=== PATIENT | female | born 1990 | race Caucasian/White ===

== ENCOUNTER 2016-06-22 04:34 | Inpatient (IN) | payer MEDICAID ==
[~2016-06-22] VITALS: Ht 154.9 cm; Wt 70.0 kg
[~2016-06-22 04:34] MED LIST: EPIFOAM10 GM TOPICAL; IBUPROFEN600 MG PO; PERCOCET 5-3251 TAB PO
[2016-06-22] MEDS ORDERED: PRENATAL COMPLE1 TAB PO (04:52)
[2016-06-22 05:06] VITALS: BP 144/78; Ht 154.9 cm; Wt 70.0 kg
[2016-06-22 07:52] LABS: HEMATOCRIT 32.2 % (36.0-48.0); HEMOGLOBIN 9.7 g/dL (12-16); MCH 22.7 pg (26.0-34.0); MCHC 30.1 g/dL (31.0-37.0); MCV 75.4 fL (80.0-100.0); MEAN PLATELET VOLUME 10.8 fL (7.4-10.4); RBC 4.27 10x6/uL (4.00-5.40); RDW 15.7 % (11.5-14.5)
--- NOTE | 2016-06-22 17:30 | NUR ---
PATIENT UP TO SHOWER. NO SIGNS OF DISTRESS NOTED.
--- NOTE | 2016-06-22 18:00 | NUR ---
PATIENT LYING IN BED HOLDING . PATIENT DENIES ANY NEEDS AT THIS TIME. NO SIGNS OF DISTRESS NOTED.
[2016-06-22 19:31] VITALS: BP 111/59
--- NOTE | 2016-06-22 19:31 | NUR ---
SITTING CROSS LEGGED IN BED. VISITOR AT BEDSIDE HOLDING INFANT. PT. FILLING OUT NBN PAPERWORK. REPORTS PAIN A 2 OF 10 AND STATES SHE FEELS IT WHENEVER SHE IS AMBULATORY. IV SALINE NOTED IN LT WRIST AREA. PT. ASKED IF IV CAN BE TAKEN OUT. INFORMED PT. TO WHY IV LEFT UNTIL AM LABS AND PT. STATES SHE IS FINE WITH THAT. BREATH SOUNDS CLEAR AND BOWEL SOUNDS AUDIBLE. NO COMPLAINT OF PAIN IN LOWER EXTREMITIES AND NO REDNESSN NOTED. FUNDUS FIRM U/2 AND LOCHIA RUBRA SCANT TO MOD. PT. DENIES ANY NEEDS.
--- NOTE | 2016-06-22 21:09 | NUR ---
MILK OF MAGNESIA GIVEN ORDERED. DISCUSSED WITH PT. POSSIBLY CONTINUING SAME AT HOME. PT. REPORTS THAT SHE HAS PROBLEMS WITH CONSTIPATION AND ALSO HAS HEMORRHOIDS. PT.STATES THAT AFTER SHE FEEDS HER THAT SHE WOULD LIKE HER PAIN MEDS AND THEN SHE WILL GO TO SLEEP. STATES THAT HER OTHER CHILD HAD A STOMACH BUG THE NIGHT PRIOR TO HER INDUCTION SO SHE WAS UNABLE TO SLEEP AND IS REALLY TIRED. PT. INFORMED TO JUST CALL AND PAIN MED WOULD BE BROUGHT AND WOULD ALSO RETURN TO NBN. VISITOR REMAINS AT BEDSIDE HOLDING .
--- NOTE | 2016-06-22 21:49 | NUR ---
PT RINGS CL. THIS RN TO BEDSIDE. PT REQUESTS BE TAKEN TO NBN. TRANSPORTED VIA OPEN CRIB TO NBN PER THIS RN.
--- NOTE | 2016-06-22 22:00 | NUR ---
PT REQUESTS AND RECEIVES MOTRIN 600MG X1 TAB AND PERCOCET 5/325 X1 TAB FOR PAIN RATED 6/10 IN PERINEUM. PT DENIES FURTHER NEEDS AT THIS TIME.
--- NOTE | 2016-06-22 23:47 | NUR ---
PAIN REASSESSMENT COMPLETE. PT STATES "THE MEDICINE HELPED AFTER ABOUT 30 MINS BUT NOW MY PAIN IS WORSE." PT CURRENTLY SITTING UP IN BED INFANT. PT C/O PAIN IN PERINEUM AND SAYS HER HEMMORHOIDS HURT MORE THAN ANYTHING ELSE. PLAN TO OFFER SITZ BATH AFTER IS FINISHED. PT DENIES FURTHER NEEDS AT THIS TIME.
--- NOTE | 2016-06-23 00:15 | NUR ---
PT.UP IN BATHROOM. C/O HEMORRHOIDAL PAIN. SUGGESTED THAT PT. TRY SITZ BATH. EXPLAINED THE RATIONAL FOR SITZ BATH AND PT. STATED THAT SHE WOULD LIKE TO USE. AFTER PT. VOIDED, SITZ BATH PREPARED AND PT. INSTRUCTED ON USE. DISCUSSED WITH PT. THAT AFTER SITZ BATH TO USE PROCTOCREAM AND TUCKS PADS AND THEN ICE CAP WILL BE APPLIED TO HEMORRHOID AREA. PT. RECEPTIVE TO ALL SUGGESTIONS.
--- NOTE | 2016-06-23 00:35 | NUR ---
SITZ BATH COMPLETED AND PT.USED PROCTOCREAM, TUCKS AND EPIFOAM. PT. REPORTS THAT SITZ BATH HELPED WITH HEMORRHOID PAIN. ICE CAP APPLIED TO HEMORRHOIDAL AREA AND PT. LYING IN BED ON RT SIDE. REQUESTED LIGHTS OUT. PT. STATES SHE DESIRES TO SLEEP UNTIL COMES FOR NEXT FEEDING.
--- NOTE | 2016-06-23 02:38 | NUR ---
INFANT TO ROOM FOR FEEDING. PT. UP TO BATHROOM. REPORTS THAT INTERVENTIONS "REALLY HELPED" HEMORRHOIDAL DISCOMFORT. STATES SHE IS HAVING OCCAS. ABD. CRAMPING AT THIS TIME. BACK TO BED. ID OF AND MOTHER MATCHED. INFORMED PT. TO CALL WHEN SHE IS READY TO RETURN INFANT TO NURSERY.
--- NOTE | 2016-06-23 03:25 | NUR ---
PT RINGS CL. RN TO BEDSIDE. PT FINISHED . PLACED IN OPEN CRIB AND SWADDLED PER THIS RN. PT REQUESTS & RECEIVES PERCOCET 5/325MG X1 TAB FOR PAIN RATED 6/10 IN ABD FOR UTERINE CRAMPING. PT DENIES FURTHER NEEDS. TRANSPORTED VIA OPEN CRIB TO NBN PER THIS RN.
--- NOTE | 2016-06-23 04:14 | NUR ---
PT. AWAKENS WITH THIS NURSE ENTERING ROOM. REQUESTED MORE ICE WATER AND REFILL OF ICE CAP FOR RECTAL AREA. BOTH PROVIDED. RATES PAIN A 1 OF 10 ON PAIN SCALE. REQUEST ALL LIGHTS IN ROOM DIMMED OR OFF.
[2016-06-23 06:13] LABS: RAPID PLASMA REAGIN Non Reactive (Non Reactive)
--- NOTE | 2016-06-23 06:30 | NUR ---
PT. AWAKENED FOR FEEDING OF . ID OF AND MOTHER MATCHED.
[2016-06-23 07:12] LABS: BASOPHILS 0.1 % (0.0-2.0); EOSINOPHILS 0.7 % (0-7); HEMATOCRIT 31.1 % (36.0-48.0); HEMOGLOBIN 9.2 g/dL (12-16); IMMATURE GRANULOCYTES 0.4 % (0-5); LYMPHOCYTES 19.6 % (15-50); MCH 22.7 pg (26.0-34.0); MCHC 29.6 g/dL (31.0-37.0); MCV 76.8 fL (80.0-100.0); MEAN PLATELET VOLUME 10.9 fL (7.4-10.4); MONOCYTES 6.3 % (2-11); NEUTROPHILS 72.9 % (40-80); RBC 4.05 10x6/uL (4.00-5.40); RDW 15.8 % (11.5-14.5); WBC 8.1 10x3/uL (4.8-10.8)
[2016-06-23 07:14] LABS: PLATELET COUNT 144 10x3/uL (130-400)
[2016-06-23 07:17] VITALS: BP 127/67
--- NOTE | 2016-06-23 07:34 | NUR ---
PATIENT ASSESSMENT COMPLETED. REQUESTED DIFFERENT ITEMS FOR BREAKFAST. 3/10 PAIN IN HEMORRHOID AREA, REQUESTED ICE PACK. HAS BEEN UP TO BR VOIDED, KAT-CARE COMPLETED, USING PROCTOFOAM FOR HEMORRHOIDS AND TUCKS PADS PRN. IN NURSERY, BREASTFED WITHOUT DIFFICULTY. UNSURE IF SHE WANTS TDAP PRIOR TO DC. RN WILL PROVIDE INFORMATION. RH POSITIVE, RUBELLA IMMUNE. SIDE RAILS UP X 2, CALL LIGHT IN REACH.
--- NOTE | 2016-06-23 08:55 | NUR ---
SITTING UP IN BED HOLDING . TDAP INFORMATION GIVEN. DENIES NEEDING ANYTHING AT THIS TIME. CALL LIGHT IN REACH, TO CALL IF ANYTHING IS NEEDED. VERBALIZED UNDERSTANDING.
--- NOTE | 2016-06-23 10:04 | NUR ---
REQUESTED PAIN MEDICATION FOR 6/10 CRAMPING AFTER . PERCOCET 5 MG PO FOR RELIEF AFTER DISCUSSING PAIN MEDICATION OPTIONS. SIDE RAILS UP X 2, CALL LIGHT IN REACH. INFANT IN ARMS, REMINDED NOT TO SLEEP WITH IN ARMS. VERBALIZED UNDERSTANDING. PLANS SHOWER AFTER ARRIVES.
[2016-06-23] MEDS ORDERED: IBUPROFEN600 MG PO (10:25)
[2016-06-23] MEDS ORDERED: PERCOCET 5-3251 TAB PO (10:25)
--- NOTE | 2016-06-23 10:39 | NUR ---
DR HERZOG HERE. NEW ORDERS RECEIVED TO DC HOME. SALINE LOCK DC'D AND PATIENT UP TO SHOWER. FOB IN ROOM WITH . PT DESIRES TDAP BEFORE DC HOME.
--- NOTE | 2016-06-23 11:26 | NUR ---
DR HERZOG VISITING PT. CONTINUES WITH 5/10 CRAMPING. MOTRIN 600 MG GIVEN PO FOR RELIEF. ALSO REQUESTED KAT-CARE AND HEMORRHOID CREAM. AWAITING DC OF INFANT. NO ADDITIONAL REQUESTS.
--- NOTE | 2016-06-23 12:27 | NUR ---
CURRENTLY INFANT. VERBAL AND WRITTEN DC INFORMATION GIVEN INCLUDING ROUTINE PP CARE, S&S INFECTION, PP DEPRESSION, /BREAST CARE, HEMORRHOID CARE, SITZ BATH, LACERATION CARE, COMMUNITY RESOURCES, MEDICATION ADMINISTRATION AND F/U. VERBALIZED UNDERSTANDING. ALREADY HAS F/U APPOINTMENT SCHEDULED. NO REQUESTS AT THIS TIME. FOB AND SON IN ROOM. AWAITING DC OF INFANT.
--- NOTE | 2016-06-23 13:04 | NUR ---
DISCHARGE COMPLETED. WAITING ON DC.
--- NOTE | 2016-06-23 14:05 | NUR ---
DC'D VIA WHEELCHAIR TO CAR. IN CARSEAT. FOB PRESENT. ALL BELONGS REMOVED FROM ROOM. HAS DC INSTRUCTIONS AND PRESCRIPTIONS X 2.
== END 2016-06-23 14:05 | disposition home or self-care (01) | DRG 775 ==
LOC: D.LD 04:34
PROVIDERS: ADMIT Specialist
PROC: 10E0XZZ Delivery of Products of Conception, External Approach (ICD-10-PCS; principal; 2016-06-22)
PROC: 0KQM0ZZ Repair Perineum Muscle, Open Approach (ICD-10-PCS; 2016-06-22)
DX: O66.0 Obstructed labor due to shoulder dystocia (principal); Z3A.39 39 weeks gestation of pregnancy; Z37.0 Single live birth; O70.1 Second degree perineal laceration during delivery; Z87.891 Personal history of nicotine dependence